=== PATIENT | female | born 1960 | race Caucasian/White ===

== ENCOUNTER 2017-04-14 05:43 | Day surgery (SDC) | payer BC ==
--- NOTE | ~2017-04-14 | EGD ---
EGD REPORT [facility] [address] [address] NAME: CASSIDY ARMIJO : [birth year] STATUS : REG [facility]#: [id number] AGE: 57 ADM/REG DATE : 04/14/17 MR#: [id number] REPORT SERV DATE: 04/14/17 DICTATED BY: DATE: REPORT STATUS : Draft TRANSCRIBED BY: [employer] DATE: 04/14/17 [facility] Patient Name: Cassidy Armijo Date of : 1960 Attending MD: STEFFEN SHANKAR MD Procedure Date No Time: 04/14/2017 Procedure: Upper GI endoscopy Indications: Suspected celiac disease, Positive celiac serologies Referring MD: JENA JOHNSON Medicines: Monitored Anesthesia Care Complications: No immediate complications. Procedure: Pre-Anesthesia Assessment: - ASA Grade Assessment: III - A patient with severe systemic disease. After obtaining informed consent, the endoscope was passed under direct vision. Throughout the procedure, the patient's blood pressure, pulse, and oxygen saturations were monitored continuously. The GIF [id number] [id number] was introduced through the mouth, and advanced to the second part of duodenum. The upper GI endoscopy was accomplished without difficulty. The patient tolerated the procedure well. Findings: The examined esophagus was normal. The Z-line was regular and was found 40 cm from the incisors. There is no endoscopic evidence of [place]'s esophagus, areas of erosion, ulcerations or varices in the entire esophagus. The entire examined stomach was normal. There is no endoscopic evidence of erythema, mucosal abnormalities, ulceration or varices in the entire examined stomach. Decreased folds were found in the entire duodenum, flattening was found in the entire duodenum and scalloped mucosa was found in the 2nd part of the duodenum. Biopsies were taken with a cold forceps for histology. The exam of the duodenum was otherwise normal. There is no endoscopic evidence of stenosis or ulceration in the entire examined duodenum. The cardia and gastric fundus were normal on retroflexion. Impression: - Normal esophagus. - Z-line regular, 40 cm from the incisors. - Normal stomach. - Duodenal mucosal changes seen, suspicious for celiac disease. Biopsied. EGD REPORT [address] [address] NAME: CASSIDY ARMIJO : [birth year] [place]US : [place] [facility] [place] [id number] AGE: 57 ADM/REG DATE : 04/14/17 MR#: [id number] REPORT SERV DATE: 04/14/17 DICTATED BY: DATE: REPORT STATUS : Draft TRANSCRIBED BY: [employer] DATE: 04/14/17 Recommendation: - Patient has a contact number available for emergencies. The signs and symptoms of potential delayed complications were discussed with the patient. Return to normal activities tomorrow. Written discharge instructions were provided to the patient. - Discharge patient to home. - Continue present medications. - Await pathology results. - Gluten free diet. Procedure Code(s): --- Professional --- 32997, Esophagogastroduodenoscopy, flexible, transoral; with biopsy, single or multiple Diagnosis Code(s): --- Professional --- K31.9, Disease of stomach and duodenum, unspecified R76.8, Other specified abnormal immunological findings in serum CPT copyright 2013 [employer]. All rights reserved. The codes documented in this report are preliminary and upon mix crusher operator review may be revised to meet current compliance requirements. STEFFEN SHANKAR MD 04/14/2017 7:56 AM This report has been signed electronically. Number of Addenda: 0 Note Initiated On: 04/14/2017 7:44 AM Scope Withdrawal Time 0 hours 0 minutes 0 seconds [id number] [id number]
--- NOTE | ~2017-04-14 | EGD ---
EGD REPORT [facility] [address] [address] NAME: CASSIDY ARMIJO : [birth year] STATUS : REG [facility]#: [id number] AGE: 57 ADM/REG DATE : 04/14/17 MR#: [id number] REPORT SERV DATE: 04/14/17 DICTATED BY: DATE: REPORT STATUS : Draft TRANSCRIBED BY: [employer] DATE: 04/14/17 [facility] Center Patient Name: Cassidy Armijo Date of : 1960 Attending MD: STEFFEN SHANKAR MD Procedure Date No Time: 04/14/2017 Procedure: Colonoscopy Indications: High risk colon cancer surveillance: Personal history of non-advanced adenoma Referring MD: JENA JOHNSON Medicines: Monitored Anesthesia Care Complications: No immediate complications. Procedure: Pre-Anesthesia Assessment: - ASA Grade Assessment: III - A patient with severe systemic disease. After I obtained informed consent, the scope was passed under direct vision. Throughout the procedure, the patient's blood pressure, pulse, and oxygen saturations were monitored continuously. The PCF [id number] was introduced through the anus and advanced to the cecum, identified by appendiceal orifice and ileocecal valve. The colonoscopy was performed without difficulty. The patient tolerated the procedure well. The quality of the bowel preparation was excellent. Findings: The perianal and digital rectal examinations were normal. The colon (entire examined portion) appeared normal. There is no endoscopic evidence of diverticula, inflammation, mass, polyps, ulcerations or angioectasia in the entire colon. No additional abnormalities were found on retroflexion. Impression: - The entire examined colon is normal. Recommendation: - Patient has a contact number available for emergencies. The signs and symptoms of potential delayed complications were discussed with the patient. Return to normal activities tomorrow. Written discharge instructions were provided to the patient. - Discharge patient to home. - Gluten free diet. - Repeat colonoscopy in 5 years for surveillance. - Continue present medications. Procedure Code(s): --- Professional --- EGD REPORT [facility] [address] [address] NAME: CASSIDY ARMIJO : [birth year] STATUS : REG [facility]#: [id number] AGE: 57 ADM/REG DATE : 04/14/17 MR#: [id number] REPORT SERV DATE: 04/14/17 DICTATED BY: DATE: REPORT STATUS : Draft TRANSCRIBED BY: [employer] DATE: 04/14/17 G0105, Colorectal cancer screening; colonoscopy on individual at high risk Diagnosis Code(s): --- Professional --- Z86.010, Personal history of colonic polyps CPT copyright 2013 [employer]. All rights reserved. The codes documented in this report are preliminary and upon torpedoman's mate review may be revised to meet current compliance requirements. STEFFEN SHANKAR MD 04/14/2017 8:13 AM This report has been signed electronically. Number of Addenda: 0 Note Initiated On: 04/14/2017 7:39 AM Scope Withdrawal Time 0 hours 11 minutes 23 seconds [id number] [id number]
[~2017-04-14 05:43] MED LIST: ABILIFY10 PO; ADDER10 PO; ALEVE220 MG PO; AUG500 PO; B12100T PO; BIOTINE; BONIVA150 MG PO; CALTRA600D PO; CITRACAL; CLEOCIN300 MG PO; CLOBETASOL0.051 EX; CO Q 10; DIOVAN HC1 PO; DIOVAN HCT320 MG/25 PO; EXCEDRIN PM PO; FIBERCON; FISH-EPA1000 MG PO; FORTAMET1000 MG PO; GLUCPH PO; GLUMETZA500 MG PO; IRON325 MG PO; KLONO5 PO; LAMICTAL10 PO; LEVOTHROID200 MCG PO; MICARDIS HC1 PO; MICARDIS HCT PO; MILK THISTLE; MULTIPLE VIT PO; PROMETRIUM PO; PROMETRIUM200 MG PO; PROVIGIL2 PO; SYNTHROID200 MCG PO; TOVIAZ PO; TOVIAZ8 MG PO; TRILEP150 PO; VICKS NAS; VITAMIN B 12; VITAMIN D1000 UNI1 PO; VITAMIN E PO; YAZ1 TAB PO; [UNRECOGNIZED DRUG - OTHER] PO
== END 2017-04-14 23:59 | disposition home or self-care (01) ==
LOC: DMU 05:43
PROVIDERS: Internal Medicine Gastroenterology
PROC: 0DB68ZX Excision of Stomach, Via Natural or Artificial Opening Endoscopic, Diagnostic (ICD-10-PCS; principal; 2017-04-14 07:30)
PROC: 0DJD8ZZ Inspection of Lower Intestinal Tract, Via Natural or Artificial Opening Endoscopic (ICD-10-PCS; 2017-04-14 07:30)
DX: Z12.11 Encounter for screening for malignant neoplasm of colon (principal); K31.9 Disease of stomach and duodenum, unspecified; R76.8 Other specified abnormal immunological findings in serum; Z86.010 Personal history of colon polyps; E66.9 Obesity, unspecified; I10 Essential (primary) hypertension; G47.33 Obstructive sleep apnea (adult) (pediatric); E11.9 Type 2 diabetes mellitus without complications; F41.9 Anxiety disorder, unspecified; F17.210 Nicotine dependence, cigarettes, uncomplicated; Z88.0 Allergy status to penicillin; Z88.8 Allergy status to other drugs, medicaments and biological substances; Z79.84 Long term (current) use of oral hypoglycemic drugs; Z79.899 Other long term (current) drug therapy; Z90.721 Acquired absence of ovaries, unilateral; Z98.890 Other specified postprocedural states
CPT/HCPCS: 82962; 88305